=== PATIENT | female | born 1990 | race Caucasian/White ===

== ENCOUNTER 2016-09-15 14:34 | Emergency (ER) | payer SELFPAY ==
[~2016-09-15] VITALS: Ht 170.2 cm; Wt 65.0 kg
[2016-09-15 14:35] VITALS: BP 126/80; PULSE 107; RESP 20; TEMP 98; O2SAT 96
== END 2016-09-15 17:50 | disposition left against medical advice (07) ==
LOC: NED 14:34
DX: O26.90 Pregnancy related conditions, unspecified, unspecified trimester (principal); Z3A.00 Weeks of gestation of pregnancy not specified
CPT/HCPCS: 99281

== ENCOUNTER 2016-09-16 21:42 | Emergency (ER) | payer OTHER ==
[2016-09-16 21:45] VITALS: BP 112/76; PULSE 112; RESP 16; TEMP 98.1; O2SAT 97
[2016-09-17 00:23] LABS: AUTOMATED NEUTROPHIL # 9.1 TH/MM3 (1.8-7.7); BASOPHIL % 0.1 % (0.0-2.0); EOSINOPHIL # 0.8 TH/MM3 (0-0.4); EOSINOPHIL % 5.9 % (0.0-4.0); HEMATOCRIT 33.5 % (35.0-46.0); HEMO FLAGS DIFF FINAL; MEAN CELL VOLUME 83.3 FL (80.0-100.0); MEAN CORPUSCULAR HGB CONC 33.6 % (32.0-36.0); MONO % 6.2 % (0.0-8.0); NEUT % 65.8 % (16.0-70.0); PLATELET COUNT 432 TH/MM3 (150-450); RED BLOOD COUNT 4.02 MIL/MM3 (4.00-5.30); RED CELL DISTRIBUTION WIDTH 15.3 % (11.6-17.2); WHITE BLOOD COUNT 13.8 TH/MM3 (4.0-11.0)
[2016-09-17 00:53] LABS: BICARBONATE 28.2 MEQ/L (21.0-32.0); POTASSIUM 3.5 MEQ/L (3.5-5.1)
[2016-09-17] MEDS ORDERED: ACETAMINOPHEN 325 MG TAB PO ONE (02:15)
[2016-09-17 02:23] VITALS: BP 125/72; PULSE 72; RESP 16; O2SAT 97
[2016-09-17 03:04] LABS: BACTERIA, URINE RARE /hpf; BLOOD, URINE NEG (NEG); CALCIUM OXALATE CRYSTALS,URINE RARE /hpf; COMMENT (UR) CULT NOT INDICATED; CULTURE IF INDICATED CULT NOT INDICATED; GLUCOSE,URINE NEG (NEG); KETONE, URINE NEG (NEG); MUCUS URINE FEW /lpf (OCC); NITRITE,URINE NEG (NEG); PH, URINE 6.5 (5.0-8.5); SQUAMOUS EPITHELIAL CELL URINE 1 /hpf (0-5); URINE COLOR YELLOW (YELLW/STRAW)
[2016-09-17 03:08] LABS: BETA HCG QUANT 11025 MIU/ML (0-5)
[2016-09-17 03:13] VITALS: BP 91/51; PULSE 72; RESP 18; O2SAT 97
--- NOTE | 2016-09-17 05:57 | PD ---
HPI Chief Complaint: Punch Press Setter Problem/Complaint Time Seen by Provider: 02:15 Travel History International Travel<30 days: No Contact w/Intl Traveler<30days: No Traveled to known affect area: No History of Present Illness HPI 26yo F who is 14 weeks presents to the ED with c/o vaginal spotting and mild cramping lower abdominal pain today. Pt denies any fever, chest pain, sob, n/v or urinary complaints. PFSH Past Medical History Immunizations Current: Yes Tetanus Vaccination: Unknown Influenza Vaccination: Yes ?: LMP: 06/11/17, PT STATES TOLD BY 13 WK, 2 D Social History Alcohol Use: No Tobacco Use: Yes (1/2 ppd) Substance Use: No Allergies-Medications (Allergen,Severity, Reaction): Coded Allergies: Robitussin (Verified Allergy, Intermediate, HIVES, 09/17/16) Reported Meds & Prescriptions Reported Meds & Active Scripts Active Metronidazole 500 Mg Tab 500 Mg PO BID 7 Days Acetaminophen Extra Strength (Acetaminophen) 500 Mg Tab 500 Mg PO Q6H PRN Review of Systems Except as stated in HPI: all other systems reviewed are Neg Physical Exam Narrative GENERAL: 26yo F not in distress. SKIN: Focused skin assessment warm/dry. HEAD: Atraumatic. Normocephalic. CARDIOVASCULAR: Regular rate and rhythm. No murmur appreciated. RESPIRATORY: No accessory muscle use. Clear to auscultation. Breath sounds equal bilaterally. GASTROINTESTINAL: Abdomen soft,gravid. Mild suprapubic ttp. No RLQ ttp. No rebound tenderness or guarding. PELVIC: +White, thick vaginal discharge. No blood. No CMT or adnexal tenderness. Cervix closed. MUSCULOSKELETAL: No obvious deformities. No clubbing. No cyanosis. No edema. NEUROLOGICAL: Awake and alert. No obvious cranial nerve deficits. Motor grossly within normal limits. Normal speech. PSYCHIATRIC: Appropriate mood and affect; insight and judgment normal. Data Data Last Documented VS Vital Signs Date Time Temp Pulse Resp B/P Pulse Ox O2 Delivery O2 Flow Rate FiO2 09/17/16 03:13 72 18 91/51 97 Room Air 09/16/16 21:45 98.1 Orders Complete Blood Count With Diff (09/16/16 23:01) Basic Metabolic Panel (Bmp) (09/16/16 23:01) Type And Screen (09/17/16 02:15) Beta Hcg (Quant/Titer) (09/17/16 02:15) Urinalysis - C+S If Indicated (09/17/16 02:15) Acetaminophen (Tylenol) (09/17/16 02:15) Wet Prep Profile (09/17/16 04:47) Gc And Chlamydia Pcr (09/17/16 04:47) Ed Poc Ultrasound (09/17/16 ) Metronidazole (Flagyl) (09/17/16 06:00) Labs Laboratory Tests Test 09/17/16 09/17/16 09/17/16 09/17/16 00:01 02:34 02:47 05:00 White Blood Count 13.8 TH/MM3 Red Blood Count 4.02 MIL/MM3 Hemoglobin 11.3 GM/DL Hematocrit 33.5 % Mean Corpuscular Volume 83.3 FL Mean Corpuscular Hemoglobin 28.0 PG Mean Corpuscular Hemoglobin 33.6 % Concent Red Cell Distribution Width 15.3 % Platelet Count 432 TH/MM3 Mean Platelet Volume 7.2 FL Neutrophils (%) (Auto) 65.8 % Lymphocytes (%) (Auto) 22.0 % Monocytes (%) (Auto) 6.2 % Eosinophils (%) (Auto) 5.9 % Basophils (%) (Auto) 0.1 % Neutrophils # (Auto) 9.1 TH/MM3 Lymphocytes # (Auto) 3.0 TH/MM3 Monocytes # (Auto) 0.9 TH/MM3 Eosinophils # (Auto) 0.8 TH/MM3 Basophils # (Auto) 0.0 TH/MM3 CBC Comment DIFF FINAL Differential Comment Sodium Level 137 MEQ/L Potassium Level 3.5 MEQ/L Chloride Level 103 MEQ/L Carbon Dioxide Level 28.2 MEQ/L Anion Gap 6 MEQ/L Blood Urea Nitrogen 11 MG/DL Creatinine 0.58 MG/DL Estimat Glomerular Filtration 124 ML/MIN Rate Random Glucose 74 MG/DL Calcium Level 8.6 MG/DL Human Chorionic Gonadotropin, 18620 MIU/ML Quant Blood Type AB POSITIVE Antibody Screen NEGATIVE Blood Bank Comment Urine Color YELLOW Urine Turbidity CLEAR Urine pH 6.5 Urine Specific [place] 1.027 Urine Protein TRACE mg/dL Urine Glucose (UA) NEG mg/dL Urine Ketones NEG mg/dL Urine Occult Blood NEG Urine Nitrite NEG Urine Bilirubin NEG Urine Urobilinogen LESS THAN 2.0 MG/DL Urine Leukocyte Esterase NEG Urine RBC 1 /hpf Urine WBC 3 /hpf Urine Squamous Epithelial 1 /hpf Cells Urine Calcium Oxalate Crystals RARE /hpf Urine Amorphous Sediment RARE Urine Bacteria RARE /hpf Urine Mucus FEW /lpf Microscopic Urinalysis Comment CULT NOT INDICATED Clue Cells (Wet Prep) PRESENT Vaginal Trichomonas (Wet Prep) NONE SEEN Vaginal Yeast (Wet Prep) NONE SEEN Chlamydia trachomatis DNA NOT DETECTED (PCR) Neisseria gonorrhoeae DNA NOT DETECTED (PCR) MDM Medical Decision Making Medical Screen Exam Complete: Yes Emergency Medical Condition: Yes Interpretation(s) Laboratory Tests Test 09/17/16 09/17/16 09/17/16 09/17/16 00:01 02:34 02:47 05:00 White Blood Count 13.8 TH/MM3 (4.0-11.0) Red Blood Count 4.02 MIL/MM3 (4.00-5.30) Hemoglobin 11.3 GM/DL (11.6-15.3) Hematocrit 33.5 % (35.0-46.0) Mean Corpuscular Volume 83.3 FL (80.0-100.0) Mean Corpuscular Hemoglobin 28.0 PG (27.0-34.0) Mean Corpuscular Hemoglobin 33.6 % Concent (32.0-36.0) Red Cell Distribution Width 15.3 % (11.6-17.2) Platelet Count 432 TH/MM3 (150-450) Mean Platelet Volume 7.2 FL (7.0-11.0) Neutrophils (%) (Auto) 65.8 % (16.0-70.0) Lymphocytes (%) (Auto) 22.0 % (9.0-44.0) Monocytes (%) (Auto) 6.2 % (0.0-8.0) Eosinophils (%) (Auto) 5.9 % (0.0-4.0) Basophils (%) (Auto) 0.1 % (0.0-2.0) Neutrophils # (Auto) 9.1 TH/MM3 (1.8-7.7) Lymphocytes # (Auto) 3.0 TH/MM3 (1.0-4.8) Monocytes # (Auto) 0.9 TH/MM3 (0-0.9) Eosinophils # (Auto) 0.8 TH/MM3 (0-0.4) Basophils # (Auto) 0.0 TH/MM3 (0-0.2) CBC Comment DIFF FINAL Differential Comment Sodium Level 137 MEQ/L (136-145) Potassium Level 3.5 MEQ/L (3.5-5.1) Chloride Level 103 MEQ/L (98-107) Carbon Dioxide Level 28.2 MEQ/L (21.0-32.0) Anion Gap 6 MEQ/L (5-15) Blood Urea Nitrogen 11 MG/DL (7-18) Creatinine 0.58 MG/DL (0.50-1.00) Estimat Glomerular Filtration 124 ML/MIN Rate (>89) Random Glucose 74 MG/DL (74-106) Calcium Level 8.6 MG/DL (8.5-10.1) Human Chorionic Gonadotropin, 93994 MIU/ML Quant (0-5) Blood Type AB POSITIVE Antibody Screen NEGATIVE Blood Bank Comment Urine Color YELLOW (YELLW/STRAW) Urine Turbidity CLEAR (CLEAR) Urine pH 6.5 (5.0-8.5) Urine Specific [place] 1.027 (1.002-1.035) Urine Protein TRACE mg/dL (NEG-TRACE) Urine Glucose (UA) NEG mg/dL (NEG) Urine Ketones NEG mg/dL (NEG) Urine Occult Blood NEG (NEG) Urine Nitrite NEG (NEG) Urine Bilirubin NEG (NEG) Urine Urobilinogen LESS THAN 2.0 MG/DL (LESS THAN 2.0) Urine Leukocyte Esterase NEG (NEG) Urine RBC 1 /hpf (0-3) Urine WBC 3 /hpf (0-5) Urine Squamous Epithelial 1 /hpf (0-5) Cells Urine Calcium Oxalate Crystals RARE /hpf (NONE) Urine Amorphous Sediment RARE Urine Bacteria RARE /hpf (NONE) Urine Mucus FEW /lpf (OCC) Microscopic Urinalysis Comment CULT NOT INDICATED Clue Cells (Wet Prep) PRESENT (NONE) Vaginal Trichomonas (Wet Prep) NONE SEEN (NONE) Vaginal Yeast (Wet Prep) NONE SEEN (NONE) Differential Diagnosis Bacterial vaginosis vs. yeast vs. UTI vs. threatened Narrative Course 26yo 14 week female here with lower abdominal cramping and vaginal spotting. Type and screen AB positive. Labs reviewed, mild leukocytosis at 13.8. bHCT 86073. BMP unremarkable. UA showed negative leukocyte or nitrite. Culture not indicated. Wet prep positive for clue cells. Pt given first dose of metronidazole. Pt reevaluated at bedside after acetaminophen and abdominal pain has resolved. Abdomen is soft, NT/ND. Pt has no cervical motion tenderness and states she she does not want to be empirically treated for GC/chlamydia. Would rather wait for culture. Pt instructed to follow up with OBGYN in 1-2 days. Procedures Procedure Narrative Emergency Department Pelvic ultrasound was performed with patient consent. The curvilinear probe was used in the transverse and sagittal views within the suprapubic region revealing single intrauterine . heart rate was 132bpm. + movement. Diagnosis Primary Impression: Bacterial vaginosis Patient Instructions: General Instructions Departure Forms: Tests/Procedures Additional Instructions: Please follow up with your OBGYN in 1-2 days. Return to the ED if symptoms worsen. Med/Other Pt SpecificInfo: Prescription(s) given Scripts Metronidazole 500 Mg [id number] Mg PO BID 7 Days Ref 0 Prov:Lu Villalobos DO 09/17/16 Acetaminophen (Acetaminophen Extra Strength)500 Mg [id number] Mg PO Q6H PRN (PAIN SCALE 1 TO 4) #20 TAB Ref 0 Prov:Lu Villalobos DO 09/17/16 Disposition: 01 DISCHARGE HOME Condition: Stable Lu Villalobos DO Sep 17, 2016 05:57
[2016-09-17] MEDS ORDERED: metroNIDAZOLE 500 MG TAB PO ONE (06:00)
[2016-09-17] MEDS ORDERED: METR500T10 PO (06:06)
[2016-09-17] MEDS ORDERED: ACET500T36 PO (06:06)
[2016-09-17 07:13] LABS: CHLAMYDIA PCR NOT DETECTED (NOT DETECT); NEISSERIA PCR NOT DETECTED (NOT DETECT)
== END 2016-09-17 06:35 | disposition home or self-care (01) ==
LOC: NEPE 21:42
DX: O23.592 Infection of other part of genital tract in pregnancy, second trimester (principal); O26.852 Spotting complicating pregnancy, second trimester; Z3A.14 14 weeks gestation of pregnancy
CPT/HCPCS: 80048; 81001; 84702; 85025; 86850; 86900; 86901; 87210; 87491; 87591; 99284

== ENCOUNTER → 2016-11-19 | Outpatient (CLI) | payer MEDICAID | LOC: HPND 14:21 | PROVIDERS: ATTEND Obstetrics & Gynecology | DX: O99.323 Drug use complicating pregnancy, third trimester (principal); O09.33 Supervision of pregnancy with insufficient antenatal care, third trimester; O99.333 Smoking (tobacco) complicating pregnancy, third trimester | CPT/HCPCS: 76811 ==

== ENCOUNTER 2017-01-31 13:14 | Emergency (ER) | payer MEDICAID ==
[~2017-01-31] VITALS: Ht 170.2 cm; Wt 59.0 kg
[2017-01-31 13:22] VITALS: BP 124/81; PULSE 129; RESP 22; TEMP 98.8; O2SAT 93
[2017-01-31 13:32] VITALS: BP 124/81; PULSE 116; RESP 21; TEMP 98.8; O2SAT 93
[2017-01-31] MEDS ORDERED: SODIUM CHLOR 0.9% 1000 ML INJ 1,000 ML IV ONE (13:45)
[2017-01-31] MEDS ORDERED: ONDANSETRON HCL 4 MG/2 ML VIAL IV ONE (13:45)
--- NOTE | 2017-01-31 13:50 | PD ---
HPI Chief Complaint: OD/ Ingestion Time Seen by Provider: 13:30 Travel History International Travel<30 days: No Contact w/Intl Traveler<30days: No Traveled to known affect area: No History of Present Illness HPI Said 26 year-old woman who presents to the emergency department after being found apneic and unresponsive. She reports injecting which she believes is an 8 mg Dilaudid pill earlier today. She reports that she's been clean for a week and just recently relapsed using. Of note she is also 2 weeks from a vaginal delivery. She denies any other symptoms. No other recent illness or injury. EMS reports they found the patient apneic, prone, and cyanotic. She did have a pulse. EMS gave 0.4 mg of IV Narcan with complete response. Patient is awake and talking. History Past Medical History Medical History: Denies Significant Hx Tetanus Vaccination: < 5 Years LMP: 9 MONTHS AGO : 3 Para: 3 Past Surgical History Surgical History: No Previous Surgery Social History Alcohol Use: No Tobacco Use: Yes (1/2 ppd) Allergies-Medications (Allergen,Severity, Reaction): Coded Allergies: Robitussin (Verified Allergy, Intermediate, HIVES, 01/31/17) Reported Meds & Prescriptions Reported Meds & Active Scripts Active No Active Prescriptions or Reported Medications Review of Systems Except as stated in HPI: all other systems reviewed are Neg Physical Exam Narrative GENERAL: Well-appearing 18 year-old woman, no acute distress. SKIN: Focused skin assessment warm/dry. HEAD: Atraumatic. Normocephalic. CARDIOVASCULAR: Regular rate and rhythm. No murmur appreciated. RESPIRATORY: No accessory muscle use. Clear to auscultation. Breath sounds equal bilaterally. GASTROINTESTINAL: Abdomen soft, non-tender, nondistended. Hepatic and splenic margins not palpable. MUSCULOSKELETAL: No obvious deformities. No clubbing. No cyanosis. No edema. NEUROLOGICAL: Awake and alert. No obvious cranial nerve deficits. Motor grossly within normal limits. Normal speech. PSYCHIATRIC: Appropriate mood and affect; insight and judgment normal. Data Data Last Documented VS Vital Signs Date Time Temp Pulse Resp B/P Pulse Ox O2 Delivery O2 Flow Rate FiO2 01/31/17 14:19 90 20 114/64 96 Room Air 01/31/17 13:32 98.8 Orders Sodium Chlor 0.9% 1000 Ml Inj (Ns 1000 M (01/31/17 13:45) Ondansetron Inj (Zofran Inj) (01/31/17 13:45) Chest, Single Ap (01/31/17 ) MDM Medical Decision Making Medical Screen Exam Complete: Yes Emergency Medical Condition: Yes Interpretation(s) Chest x-ray: No acute disease Differential Diagnosis Overdose, aspiration, hypoxia, other Narrative Course Medical decision-making 18 year-old woman, status post opiate overdose, has appointment at [facility], no self-harm intention. We'll monitor in the emergency department. Discharge after 4 hours if stable. Diagnosis Primary Impression: Opiate overdose Additional Instructions: [facility]. Return to the emergency department for any new or worsening symptoms. Med/Other Pt SpecificInfo: No Change to Meds Scripts No Active Prescriptions or Reported Meds Disposition: 01 DISCHARGE HOME Condition: Stable Finesse Reina MD Jan 31, 2017 13:50
--- NOTE | 2017-01-31 14:10 | RADRPT ---
EXAM DATE/TIME: 01/31/2017 13:42 [place] COMPARISON: No previous studies available for comparison. INDICATIONS : Short of breath. MEDICAL HISTORY : None. SURGICAL HISTORY : None. ENCOUNTER: Initial ACUITY: 1 day PAIN SCORE: 0/10 LOCATION: Bilateral chest FINDINGS: A single view of the chest demonstrates the lungs to be symmetrically aerated without evidence of mas s, infiltrate or effusion. The cardiomediastinal contours are unremarkable. Osseous structures are intact. CONCLUSION: No acute disease. Sravan Ayers MD on January 31, 2017 at 14:08 Board Certified Radiologist. This report was verified electronically.
[2017-01-31 14:19] VITALS: BP 114/64; PULSE 90; RESP 20; O2SAT 96
--- NOTE | 2017-02-01 16:23 | EKG ---
Date Performed: 01/31/2017 Time Performed: 13:27:04 PTAGE: 26 years EKG: SINUS TACHYCARDIA ABNORMAL RHYTHM ECG INTERPRETATION BASED ON A DEFAULT AGE OF 38 YEARS NO PREVIOUS TRACING DOCTOR: Hannah Mosquera Interpretating Date/Time 02/01/2017 16:20:40
== END 2017-01-31 17:38 | disposition home or self-care (01) ==
LOC: NEPE 13:14
DX: O99.325 Drug use complicating the puerperium (principal); T40.2X1A Poisoning by other opioids, accidental (unintentional), initial encounter; R00.0 Tachycardia, unspecified
CPT/HCPCS: 71010; 93005; 96361; 96374; 99284; J2405; J7030